=== PATIENT | female | born 1995 | race African-American/Black ===

== ENCOUNTER 2016-10-25 14:35 | Emergency (ER) | payer SELFPAY ==
[~2016-10-25] VITALS: Ht 180.3 cm; Wt 112.0 kg
[2016-10-25 14:39] VITALS: BP 120/63; PULSE 70; RESP 20; TEMP 98.3; O2SAT 100
== END 2016-10-25 15:50 | disposition left against medical advice (07) ==
LOC: NED 14:35
DX: R10.9 Unspecified abdominal pain (principal); Z53.21 Procedure and treatment not carried out due to patient leaving prior to being seen by health care provider
CPT/HCPCS: 99281

== ENCOUNTER 2017-05-12 12:55 | Emergency (ER) | payer SELFPAY ==
[~2017-05-12] VITALS: Ht 180.3 cm; Wt 109.1 kg
[2017-05-12 12:56] VITALS: BP 126/75; PULSE 85; RESP 14; TEMP 98.2; O2SAT 100
--- NOTE | 2017-05-12 13:49 | PD ---
HPI Chief Complaint: [employer] Work[employer] Problem/Complaint Time Seen by Provider: 13:44 Travel History International Travel<30 days: No Contact w/Intl Traveler<30days: No Traveled to known affect area: No History of Present Illness HPI Examined in the presence of a female nurse. 21-year-old female presents requesting her Mirena be removed. Symptoms are nonexistent, no aggravating or relieving factors. She simply no longer wants to have her Mirena. She has no other complaints at this time. History Social History Alcohol Use: No Tobacco Use: No Allergies-Medications (Allergen,Severity, Reaction): Coded Allergies: No Known Allergies (Unverified , 10/25/16) Reported Meds & Prescriptions Reported Meds & Active Scripts Active No Active Prescriptions or Reported Medications Review of Systems General / Constitutional: Positive: Other (presents requesting Mirena removal.) , No: Fever Gastrointestinal: No: Nausea, Vomiting, Abdominal Pain Physical Exam Narrative GENERAL: Well-nourished female in no acute distress SKIN: Warm and dry. CARDIOVASCULAR: Regular rate and rhythm. No murmur appreciated. RESPIRATORY: No accessory muscle use. Clear to auscultation. Breath sounds equal bilaterally. GASTROINTESTINAL: Abdomen soft, non-tender, nondistended. Hepatic and splenic margins not palpable. Data Data Last Documented VS Vital Signs Date Time Temp Pulse Resp B/P (MAP) Pulse Ox O2 Delivery O2 Flow Rate FiO2 05/12/17 12:56 98.2 85 14 126/75 (92) 100 MDM Medical Screen Exam Complete: Yes Emergency Medical Condition: No Narrative Course A medical screening exam was performed: At the time of evaluation the presenting medical condition was determined not to be of an emergent nature. The patient was given the option of receiving additional care, but declined. Patient was given options for additional community resources from which to obtain care. The Patient Has Been advised to seek medical attention for their presenting complaint. The patient has been advised to return to the ER at any time if an emergent condition develops. Primary Impression: Encounter for medical screening examination Scripts No Active Prescriptions or Reported Meds Carl Barber May 12, 2017 13:49
== END 2017-05-12 14:07 | disposition left against medical advice (07) ==
LOC: NEPK 12:55
DX: Z30.432 Encounter for removal of intrauterine contraceptive device (principal)
CPT/HCPCS: 99281